=== PATIENT | male | born 1965 | race Caucasian/White ===

== ENCOUNTER 2018-08-14 07:55 | Day surgery (SDC) | payer OTHER ==
[~2018-08-14] VITALS: Ht 162.6 cm; Wt 86.3 kg
[2018-08-14 08:45] VITALS: Ht 162.6 cm; Wt 86.3 kg
[2018-08-14] MEDS ORDERED: HTN MED. DAILY (08:50)
[2018-08-14] MEDS ORDERED: ATORVASTATIN DAILY (08:50)
[2018-08-14] MEDS ORDERED: FENTAnyl 50 MCG/ML VIAL ONE (10:23)
[2018-08-14] MEDS ORDERED: MIDAZOLAM 1 MG/ML 2 ML INJ ONE ×2 (10:23)
[2018-08-14 10:34] VITALS: BP 115/79; PULSE 61; RESP 12
== END 2018-08-14 11:21 | disposition home or self-care (01) ==
LOC: GIL 07:55
PROVIDERS: ATTEND Internal Medicine Gastroenterology
DX: Z12.11 Encounter for screening for malignant neoplasm of colon (principal); K64.8 Other hemorrhoids; D12.3 Benign neoplasm of transverse colon; I10 Essential (primary) hypertension
CPT/HCPCS: 45380; 88305; J2250; J3010